=== PATIENT | female | born 1985 | race Caucasian/White ===

== ENCOUNTER 2020-08-23 19:46 | Emergency (ER) | payer OTHER ==
[2020-08-23 20:08] VITALS: BP 126/76
[2020-08-23] MEDS ORDERED: ACETAMINOPHEN 500 MG TAB PO ONE (20:09)
[2020-08-23] MEDS ORDERED: IBUPROFEN 600 MG TAB PO ONE (20:09)
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
== END 2020-08-23 21:32 | disposition home or self-care (01) ==
LOC: ED 19:46
DX: S16.1XXA Strain of muscle, fascia and tendon at neck level, initial encounter (principal); M62.830 Muscle spasm of back; G44.319 Acute post-traumatic headache, not intractable; Z79.1 Long term (current) use of non-steroidal anti-inflammatories (NSAID); Z79.899 Other long term (current) drug therapy; V49.49XA Driver injured in collision with other motor vehicles in traffic accident, initial encounter; Y93.89 Activity, other specified; Y92.89 Other specified places as the place of occurrence of the external cause; Y99.8 Other external cause status
CPT/HCPCS: 70450; 72125